=== PATIENT | female | born 1965 | race American Indian/Alaskan Native ===

== ENCOUNTER 2018-03-27 16:48 | Emergency (ER) | payer BC ==
[2018-03-27 17:01] VITALS: BP 107/79
[2018-03-27] MEDS ORDERED: MOTRIN PO ONE (17:43)
--- NOTE | 2018-03-27 17:44 | Emergency Department Report ---
Blank Doc - Documentation Documentation: Patient is a 52-year-old black female who is presenting with pain near the umbilicus with some radiation down to the thighs. Patient states that she's had some urinary frequency associated with this but denies any nausea vomiting or diarrhea. Patient has had some subjective fevers at home as well. Brief physical exam patient has some mild tenderness in palpation just below the umbilicus. Patient will have a urinalysis performed patient reassessed
[2018-03-27 19:01] LABS: Bilirubin,Urine NEG (Negative); Blood,Urine NEG (Negative); Color,Urine Yellow (Yellow); Mucus,Urine 2+ /HPF; Protein,Urine <15 mg/dL mg/dL (Negative)
--- NOTE | 2018-03-27 20:21 | Emergency Department Report ---
ED Abdominal Pain HPI - General Chief Complaint: Extremity Injury, Lower Stated Complaint: LOWER ABD PAIN Time Seen by Provider: 03/27/18 17:39 Source: patient Mode of arrival: Ambulatory Limitations: No Limitations - History of Present Illness Initial Comments: 52-year-old -[place] female presents to the emergency room for complaint of pins and needle pain starting at her umbilicus going down the anterior left leg down to the left ankle. She also admits to subjective fevers at home with urinary frequency 5 days. Patient has recently traveled from [place] here. Patient reports a past medical history of asthma and hypertension. MD Complaint: abdominal pain -: days(s) (4) Location: periumbilical Severity scale (0 -10): 6 Consistency: intermittent Improves With: medication Worsens With: nothing (ibuprofen) Context: foreign travel ([place] 2 weeks ago) Treatments Prior to Arrival: NSAIDs - Related Data LMP (females 10-50): other (hysterectomy) Previous Rx's Medication Instructions Recorded Last Taken Type Cephalexin [Keflex] 500 mg PO Q6H #20 capsule 02/10/15 Unknown Rx traMADol [Ultram 50 MG tab] 50 mg PO Q4HR PRN #14 tablet 02/10/15 Unknown Rx Cyclobenzaprine [Flexeril] 10 mg PO TID PRN #30 tablet 10/07/15 Unknown Rx HYDROcodone/APAP 5-325 [[place] 1 each PO Q6HR PRN #20 tablet 10/07/15 Unknown Rx 5/325] Ibuprofen [Motrin 800 MG tab] 800 mg PO TID PRN #30 tablet 10/07/15 Unknown Rx Ibuprofen [Motrin 600 MG tab] 600 mg PO Q8H PRN #15 tablet 03/27/18 Unknown Rx Nitrofurantoin Monohyd/M-Cryst 100 mg PO BID 7 Days #14 capsule 03/27/18 Unknown Rx [Macrobid 100 mg Capsule] Allergies Allergy/AdvReac Type Severity Reaction Status Date / Time hydrocodone Allergy Nausea Verified 03/27/18 16:55 ED Review of Systems ROS: Stated complaint: LOWER ABD PAIN Other details as noted in HPI ED Past Medical Hx - Past Medical History Hx Hypertension: Yes Hx Asthma: Yes - Surgical History Hx Cholecystectomy: Yes Additional Surgical History: hysterectomy, ovary removed. - Social History Smoking Status: Never Smoker Substance Use Type: None - Medications Home Medications: Home Medications Medication Instructions Recorded Confirmed Last Taken Type Cephalexin [Keflex] 500 mg PO Q6H #20 capsule 02/10/15 Unknown Rx traMADol [Ultram 50 MG tab] 50 mg PO Q4HR PRN #14 tablet 02/10/15 Unknown Rx Cyclobenzaprine [Flexeril] 10 mg PO TID PRN #30 tablet 10/07/15 Unknown Rx HYDROcodone/APAP 5-325 [[place] 1 each PO Q6HR PRN #20 tablet 10/07/15 Unknown Rx 5/325] Ibuprofen [Motrin 800 MG tab] 800 mg PO TID PRN #30 tablet 10/07/15 Unknown Rx Ibuprofen [Motrin 600 MG tab] 600 mg PO Q8H PRN #15 tablet 03/27/18 Unknown Rx Nitrofurantoin Monohyd/M-Cryst 100 mg PO BID 7 Days #14 capsule 03/27/18 Unknown Rx [Macrobid 100 mg Capsule] ED Physical Exam - General Limitations: No Limitations ED Course Vital Signs 03/27/18 03/27/18 16:55 17:47 Temperature 99.3 F Pulse Rate 100 H Respiratory 18 18 Rate Blood Pressure 107/79 O2 Sat by Pulse 100 Oximetry Critical care attestation.: If time is entered above; I have spent that time in minutes in the direct care of this critically ill patient, excluding procedure time. ED Disposition Clinical Impression: UTI (urinary tract infection) Qualifiers: Urinary tract infection type: acute cystitis Hematuria presence: without hematuria Qualified Code(s): N30.00 - Acute cystitis without hematuria Disposition: - TO HOME OR SELFCARE Is pt being admited?: No Does the pt Need Aspirin: No Condition: Stable Instructions: Urinary Tract Infection in Women (ED) Additional Instructions: Please complete antibiotics as prescribed. You can take ibuprofen as needed. If her symptoms persist or gets worse please follow up with her primary care provider. Prescriptions: Ibuprofen [Motrin 600 MG tab] 600 mg PO Q8H PRN #15 tablet PRN Reason: Pain Nitrofurantoin Monohyd/M-Cryst [Macrobid 100 mg Capsule] 100 mg PO BID 7 Days # 14 capsule Referrals: EMILI BARRIGA MD [Primary Care Provider] - 3-5 Days ANAM MAYER MD [Referring] - 3-5 Days Forms: Accompanied Note, Work/School Release Form(ED)
== END 2018-03-27 20:30 | disposition home or self-care (01) ==
LOC: ED 16:48
DX: N30.00 Acute cystitis without hematuria (principal); I10 Essential (primary) hypertension; J45.909 Unspecified asthma, uncomplicated; Z90.710 Acquired absence of both cervix and uterus; Z90.49 Acquired absence of other specified parts of digestive tract; Z88.6 Allergy status to analgesic agent
CPT/HCPCS: 81001; 99283